=== PATIENT | female | born 2000 | race Caucasian/White ===

== ENCOUNTER 2020-08-30 21:33 | Emergency (ER) | payer BC ==
[~2020-08-30] VITALS: Ht 160 cm; Wt 88.0 kg
[2020-08-30 22:37] VITALS: BP 135/88
== END 2020-08-30 22:37 | disposition home or self-care (01) ==
LOC: ED 21:33
DX: N39.0 Urinary tract infection, site not specified (principal); J45.909 Unspecified asthma, uncomplicated
CPT/HCPCS: J1644